=== PATIENT | male | born 1980 | race African-American/Black ===

== ENCOUNTER 2017-05-31 23:48 | Emergency (ER) | payer SELFPAY ==
[~2017-05-31] VITALS: Ht 185.4 cm; Wt 75.0 kg
[~2017-05-31 23:48] MED LIST: DICL50TA2 PO; METH750T2 PO; PRED20 PO; TYLE3 PO
[2017-05-31 23:52] VITALS: BP 148/88; PULSE 83; RESP 16; TEMP 99.2; O2SAT 98
[2017-06-01] MEDS ORDERED: SODIUM CHLOR 0.9% 1000 ML INJ 1,000 ML IV ONE (01:00)
[2017-06-01] MEDS ORDERED: KETOROLAC TROMETHAMINE 30 MG/ML (IVP) VIAL IV PUSH ONE (01:00)
[2017-06-01] MEDS ORDERED: DEXAMETHASONE SOD PHOS 20 MG/5 ML VIAL IV PUSH ONE (01:00)
[2017-06-01 01:18] LABS: AUTOMATED NEUTROPHIL # 11.1 TH/MM3 (1.8-7.7); BASOPHIL # 0.1 TH/MM3 (0-0.2); BASOPHIL % 0.4 % (0.0-2.0); EOSINOPHIL # 0.1 TH/MM3 (0-0.4); EOSINOPHIL % 0.7 % (0.0-4.0); HEMATOCRIT 43.2 % (39.0-51.0); HEMO FLAGS DIFF FINAL; LYMPH % 14.2 % (9.0-44.0); MONO % 6.9 % (0.0-8.0); NEUT % 77.8 % (16.0-70.0); PLATELET COUNT 187 TH/MM3 (150-450); RED BLOOD COUNT 5.08 MIL/MM3 (4.50-5.90); RED CELL DISTRIBUTION WIDTH 13.7 % (11.6-17.2); WHITE BLOOD COUNT 14.2 TH/MM3 (4.0-11.0)
[2017-06-01 01:34] LABS: ALT (GPT) 38 U/L (12-78); ANION GAP 6 MEQ/L (5-15); AST (GOT) 29 U/L (15-37); BICARBONATE 30.2 MEQ/L (21.0-32.0); BLOOD UREA NITROGEN 14 MG/DL (7-18); CHLORIDE 101 MEQ/L (98-107); GLOMERULAR FILTRATION RATE 75 ML/MIN (>89); POTASSIUM 3.5 MEQ/L (3.5-5.1); SODIUM (NA) 137 MEQ/L (136-145)
[2017-06-01 01:36] LABS: ALKALINE PHOSPHATASE 97 U/L (45-117); TOTAL BILIRUBIN ADULT 0.5 MG/DL (0.2-1.0)
[2017-06-01] MEDS ORDERED: PENICILLIN G BENZATHINE 1,200,000 UNITS/2 ML SYRINGE IM ONE (02:00)
--- NOTE | 2017-06-01 02:20 | PD ---
HPI Chief Complaint: ENT Complaint Time Seen by Provider: 00:21 Travel History International Travel<30 days: No Contact w/Intl Traveler<30days: No Traveled to known affect area: No History of Present Illness HPI Patient is a 36-year-old male who comes in complaining of sore throat, pain with swallowing and swelling to his neck. He says this is been going on since before . He denies fever or chills. He says it hurts to swallow, but he is able to swallow. He denies any sick contacts. He has tried Tylenol and Motrin at home for pain without much relief. PFSH Past Medical History Arthritis: No Asthma: No Autoimmune Disease: No Blood Disorders: No Anxiety: No Depression: No Heart Rhythm Problems: No Cancer: No Cardiovascular Problems: Yes (HTN) High Cholesterol: No Chemotherapy: No Chest Pain: No Congestive Heart Failure: No COPD: No Cerebrovascular Accident: No Diabetes: No Diminished Hearing: No Endocrine: No Gastrointestinal Disorders: No GERD: No Glaucoma: No Genitourinary: No Headaches: Yes Hepatitis: No Hiatal Hernia: No Heparin Induced Thrombocytopen: No Hypertension: No Immune Disorder: No Implanted Vascular Access Dvce: No Kidney Stones: No Musculoskeletal: No Neurologic: No Psychiatric: No Reproductive: No Respiratory: No Immunizations Current: Yes Migraines: Yes Myocardial Infarction: No Radiation Therapy: No Renal Failure: No Seizures: No Sickle Cell Disease: No Sleep Apnea: No Thyroid Disease: No Ulcer: No Tetanus Vaccination: < 5 Years Influenza Vaccination: Yes Past Surgical History Abdominal Surgery: No AICD: No Appendectomy: No Arteriovenous Shunt: No Cardiac Surgery: No Cholecystectomy: No Ear Surgery: No Endocrine Surgery: Yes Eye Surgery: No Genitourinary Surgery: No Gynecologic Surgery: No Insulin Pump: No Joint Replacement: No Neurologic Surgery: No Oral Surgery: No Pacemaker: No Thoracic Surgery: No Other Surgery: Yes Social History Alcohol Use: Yes (2X WEEK) Tobacco Use: Yes (3pk/wk) Substance Use: No Allergies-Medications (Allergen,Severity, Reaction): Coded Allergies: No Known Allergies (Verified Adverse Reaction, Unknown, 06/01/17) Reported Meds & Prescriptions Reported Meds & Active Scripts Active Tylenol #3 (Acetaminophen/Codeine Phosphate) Acetaminophen 300/30 Codeine Tab 1 Tab PO Q4H PRN FOR PAIN Deltasone (Prednisone) 20 Mg Tab 20 Mg PO DIRECTED 3 TABS DAILY FOR 3 DAYS,THEN 2 TABS DAILY FOR 3 DAYS, THEN 1 TAB DAILY FOR 3 DAYS. Robaxin (Methocarbamol) 750 Mg Tab 750 Mg PO TID PRN Diclofenac Potassium 50 mg (Diclofenac Potassium) 50 Mg Tab 1 Tab PO Q8 PRN Review of Systems Except as stated in HPI: all other systems reviewed are Neg General / Constitutional: No: Fever, Chills HENT: Positive: Sore Throat, No: Headaches Cardiovascular: No: Chest Pain or Discomfort Respiratory: No: Cough, Shortness of Breath Gastrointestinal: No: Nausea, Vomiting Musculoskeletal: No: Myalgias, Edema Skin: No Rash, No Change in Pigmentation Neurologic: No: Weakness, Dizziness Physical Exam Narrative GENERAL: Awake and alert, in no acute distress. SKIN: Focused skin assessment warm/dry. HEAD: Atraumatic. Normocephalic. EYES: Pupils equal and round. No scleral icterus. ENT: Tonsils enlarged, left tonsil is erythematous with exudates. Mucous membranes pink and moist. NECK: Trachea midline. No JVD. Anterior cervical lymphadenopathy. CARDIOVASCULAR: Regular rate and rhythm. No murmur appreciated. RESPIRATORY: No accessory muscle use. Clear to auscultation. Breath sounds equal bilaterally. MUSCULOSKELETAL: No obvious deformities. No clubbing. No cyanosis. No edema. NEUROLOGICAL: Awake and alert. No obvious cranial nerve deficits. Motor grossly within normal limits. Normal speech. PSYCHIATRIC: Appropriate mood and affect; insight and judgment normal. Data Data Last Documented VS Vital Signs Date Time Temp Pulse Resp B/P (MAP) Pulse Ox O2 Delivery O2 Flow Rate FiO2 05/31/17 23:52 99.2 83 16 148/88 (108) 98 Room Air Orders Orders Iv Access Insert/Monitor (06/01/17 00:52) Complete Blood Count With Diff (06/01/17 00:52) Comprehensive Metabolic Panel (06/01/17 00:52) Group A Rapid Strep Screen (06/01/17 00:52) Sodium Chlor 0.9% 1000 Ml Inj (Ns 1000 M (06/01/17 01:00) Ketorolac Inj (Toradol Inj) (06/01/17 01:00) Dexamethasone Inj (Decadron Inj) (06/01/17 01:00) Penicillin G Benzathine Inj (Bicillin L- (06/01/17 02:00) Labs Laboratory Tests Test 06/01/17 01:05 White Blood Count 14.2 TH/MM3 Red Blood Count 5.08 MIL/MM3 Hemoglobin 14.3 GM/DL Hematocrit 43.2 % Mean Corpuscular Volume 85.0 FL Mean Corpuscular Hemoglobin 28.0 PG Mean Corpuscular Hemoglobin Concent 33.0 % Red Cell Distribution Width 13.7 % Platelet Count 187 TH/MM3 Mean Platelet Volume 10.0 FL Neutrophils (%) (Auto) 77.8 % Lymphocytes (%) (Auto) 14.2 % Monocytes (%) (Auto) 6.9 % Eosinophils (%) (Auto) 0.7 % Basophils (%) (Auto) 0.4 % Neutrophils # (Auto) 11.1 TH/MM3 Lymphocytes # (Auto) 2.0 TH/MM3 Monocytes # (Auto) 1.0 TH/MM3 Eosinophils # (Auto) 0.1 TH/MM3 Basophils # (Auto) 0.1 TH/MM3 CBC Comment DIFF FINAL Differential Comment Blood Urea Nitrogen 14 MG/DL Creatinine 1.30 MG/DL Random Glucose 117 MG/DL Total Protein 8.7 GM/DL Albumin 3.9 GM/DL Calcium Level 9.6 MG/DL Alkaline Phosphatase 97 U/L Aspartate Amino Transf (AST/SGOT) 29 U/L Alanine Aminotransferase (ALT/SGPT) 38 U/L Total Bilirubin 0.5 MG/DL Sodium Level 137 MEQ/L Potassium Level 3.5 MEQ/L Chloride Level 101 MEQ/L Carbon Dioxide Level 30.2 MEQ/L Anion Gap 6 MEQ/L Estimat Glomerular Filtration Rate 75 ML/MIN [facility] Medical Decision Making Medical Screen Exam Complete: Yes Emergency Medical Condition: Yes Differential Diagnosis Strep pharyngitis versus URI versus peritonsillar abscess Narrative Course Patient is a 36-year-old male comes in complaining of throat pain and swelling of his neck. Exam shows enlarged tonsils with exudates. IV established, labs sent. Labs showed elevated white blood cell count, no other acute abnormalities. Rapid strep test is positive. Patient given IV fluids, Decadron , Toradol. Given IM penicillin G. Advised to drink plenty of fluids. Advised take ibuprofen as needed for pain or fever. Advised to return to the ED as needed for any worsening symptoms. Diagnosis Primary Impression: Strep pharyngitis Patient Instructions: General Instructions, Strep Throat (ED) Additional Instructions: Drink plenty of fluids. Take Tylenol or ibuprofen as needed for pain. Follow- up with a primary care doctor. Return to the ED as needed for any worsening symptoms. Disposition: 01 DISCHARGE HOME Condition: Stable Ning Marin MD Jun 01, 2017 02:20
== END 2017-06-01 03:04 | disposition home or self-care (01) ==
LOC: NEPE 23:48
DX: J02.0 Streptococcal pharyngitis (principal); F17.210 Nicotine dependence, cigarettes, uncomplicated
CPT/HCPCS: 80053; 85025; 87880; 96361; 96372; 96374; 96375; 99284; J0561; J1100; J1885; J7030